=== PATIENT | female | born 1990 | race Two or more races ===

== ENCOUNTER 2022-11-15 22:29 | Emergency (ER) | payer OTHER ==
[~2022-11-15] VITALS: Ht 172.7 cm; Wt 54.4 kg
[2022-11-16 02:24] VITALS: BP 126/78; TEMP 98.4; O2SAT 98
== END 2022-11-16 02:24 | disposition home or self-care (01) ==
LOC: ER 22:31
DX: S02.2XXA Fracture of nasal bones, initial encounter for closed fracture (principal); S00.03XA Contusion of scalp, initial encounter; Y04.8XXA Assault by other bodily force, initial encounter; Y93.89 Activity, other specified; Y92.89 Other specified places as the place of occurrence of the external cause; Y99.8 Other external cause status
CPT/HCPCS: 70450-TC; 70486-TC; 72125-TC